=== PATIENT | female | born 1985 | race Caucasian/White ===

== ENCOUNTER 2022-06-24 13:41 | Emergency (ER) | payer MEDICAID ==
[~2022-06-24] VITALS: Ht 165.1 cm; Wt 84.0 kg
[2022-06-24 14:19] VITALS: BP 122/72
[2022-06-24] MEDS ORDERED: IBUPROFEN 600MG TABLET PO ONE (15:45)
[2022-06-24] MEDS ORDERED: IBUP-2029 MT (17:22)
== END 2022-06-24 17:27 | disposition home or self-care (01) ==
LOC: ER 13:41
DX: S92.512A Displaced fracture of proximal phalanx of left lesser toe(s), initial encounter for closed fracture (principal); W22.8XXA Striking against or struck by other objects, initial encounter; Y93.01 Activity, walking, marching and hiking; Y92.89 Other specified places as the place of occurrence of the external cause
CPT/HCPCS: 73660; 99283

== ENCOUNTER 2024-03-29 17:06 | Emergency (ER) | payer MEDICAID ==
[~2024-03-29] VITALS: Ht 167.6 cm; Wt 83.9 kg
[~2024-03-29 17:06] MED LIST: IBUP-2029 MT
[2024-03-29 17:12] VITALS: TEMP 98.1; O2SAT 99
[2024-03-29 17:51] LABS: CHLORIDE 106 mEq/L (98-107); POTASSIUM 4.1 mEq/L (3.5-5.1); SODIUM 136 mEq/L (136-145)
[2024-03-29 17:52] LABS: CALCIUM 9.1 mg/dL (8.7-10.4); CARBON DIOXIDE 27 mEq/L (21-32)
[2024-03-29 17:55] LABS: BASOPHILS % 0.5 % (0.0-2.0); EOSINOPHILS % 3.2 % (0.0-5.0); HEMATOCRIT. 38.8 % (36.0-48.0); HEMOGLOBIN. 13.1 g/dL (12.0-16.0); LYMPHOCYTES % 9.3 % (20.0-50.0); MEAN CORPUSCULAR HEMOGLOBIN 30.9 pg (28.0-32.0); MEAN CORPUSCULAR HGB CONC 33.7 g/dL (31.0-37.0); MEAN CORPUSCULAR VOLUME 91.7 fL (81.0-99.0); MEAN PLATELET VOLUME 8.8 fl (7.4-10.4); MONOCYTES % 6.5 % (2.0-8.0); NEUTROPHILS % 80.5 % (40.0-76.0); PLATELET 169 x1000/uL (130-400); RED BLOOD CELL COUNT 4.23 mill/uL (4.2-5.4); RED CELL DISTRIBUTION WIDTH 13.8 % (11.6-14.6); WHITE BLOOD COUNT 6.5 x1000/uL (4.5-11.0)
[2024-03-29 17:56] LABS: CREATININE 0.6 mg/dL (0.6-1.0)
[2024-03-29 17:57] LABS: GLUCOSE 104 mg/dL (70-105); UREA NITROGEN BLOOD 13 mg/dL (9-23)
[2024-03-29 17:58] LABS: CLARITY URINE TURBID (CLEAR); COLOR URINE YELLOW (YELLOW); GLUCOSE URINE NEGATIVE (NEGATIVE); KETONES URINE NEGATIVE (NEGATIVE); LEUKOCYTE ESTERASE URINE 3+ (NEGATIVE); NITRITE URINE NEGATIVE (NEGATIVE); OCCULT BLOOD URINE 2+ (NEGATIVE); PROTEIN URINE 2+ (NEGATIVE); SPECIFIC GRAVITY URINE 1.008 (1.005-1.030); UROBILINOGEN URINE 0.2 E.U./dL (0.2-1.0)
[2024-03-29 18:13] LABS: BACTERIA URINE 2+; SQUAMOUS EPITHELIAL CELL URINE 1+ /lpf (RARE/1+)
[2024-03-29 18:14] LABS: WBC URINE TNTC /hpf (0-2)
[2024-03-29] MEDS ORDERED: CEFP200T13 MT (18:31)
[2024-03-29 18:44] VITALS: BP 152/83; PULSE 89; RESP 16
== END 2024-03-29 18:45 | disposition home or self-care (01) ==
LOC: ER 17:06
DX: N12 Tubulo-interstitial nephritis, not specified as acute or chronic (principal); Z98.890 Other specified postprocedural states
CPT/HCPCS: 36415; 80048; 81003; 81025; 85025; 87077; 87186; 99283

== ENCOUNTER 2024-04-14 14:29 | Emergency (ER) | payer MEDICAID ==
[~2024-04-14] VITALS: Ht 167.6 cm; Wt 82.0 kg
[~2024-04-14 14:29] MED LIST changes: +CEFP200T13 MT
[2024-04-14 14:31] VITALS: BP 136/78; PULSE 79; TEMP 98.7; O2SAT 100
== END 2024-04-14 18:18 ==
LOC: ER 14:49
DX: B34.9 Viral infection, unspecified (principal)
CPT/HCPCS: 99281